=== PATIENT | female | born 1965 | race Caucasian/White ===

== ENCOUNTER 2024-06-21 10:21 | Outpatient (CLI) | payer BC, SELFPAY ==
--- NOTE | 2024-06-21 | ECG_ITS ---
Test Date: 2024-06-21 10:41:46 Measurements Intervals [place] Rate: 69 P: 63 [place]: 125 QRS: 40 QRSD: 70 T: 47 QT: 388 QTc: 417 Interpretive Statements SINUS RHYTHM POSSIBLE LEFT ATRIAL ENLARGEMENT [-0.1mV P-WAVE IN V1/V2] LOW QRS VOLTAGE IN PRECORDIAL LEADS [QRS DEFLECTION < 1.0 mV IN CHEST LEADS] No previous ECG available for comparison Electronically Signed On 06-21-2024 11:50:32 CDT by Emile Zelaya M.D.
== END 2024-06-21 10:22 | disposition home or self-care (01) ==
LOC: ANHCARD 10:24
PROVIDERS: PCP Family Medicine; Visit Provider Neurological Surgery
DX: Z01.818 Encounter for other preprocedural examination (principal)
CPT/HCPCS: 93005